=== PATIENT | male | born 1990 | race Hispanic/Latino ===

== ENCOUNTER 2019-01-12 23:43 | Inpatient (IN) | payer SELFPAY ==
[2019-01-13 00:30] LABS: Bilirubin Negative (Negative); Blood, Urine Negative (Negative); Clarity CLEAR (Clear); Glucose, Urine (Dipstick) Negative (Negative); Leukocyte Negative (Negative); Nitrite Negative (Negative); Protein, Urine (Dipstick) Negative (Neg-Trace); Specific Gravity, Urine 1.004 (1.002-1.036)
[2019-01-13 00:30] LABS: #Eosinphils 0.2 thou/uL (0.0-0.7); #Lymphocytes 1.7 thou/uL (1.20-3.40); #Monocytes 1.6 thou/uL (0.11-0.59); #Neutrophils 9.3 thou/uL (1.40-6.50); %Basophils 0.1 % (0.0-1.0); %Eosinophils 1.2 % (0.0-10.0); %Monocytes 12.7 % (0.0-10.0); %Neutrophils 72.9 % (42.0-75.0); Hemoglobin 12.9 g/dL (14.0-18.0); Mean Corpuscular HGB CONC 33.8 g/dL (32.0-36.0); Mean Corpuscular Hemoglobin 29.9 pg (27.0-31.0); Mean Corpuscular Volume 88.4 fL (78.0-98.0); Mean Platelet Volume 7.8 fL (7.4-10.4); Platelet Count 335 thou/uL (130-400); RBC Distribution Width 11.1 % (11.5-14.5); Red Blood Cell (RBC) Count 4.32 mill/uL (4.70-6.10); White Blood Cell (WBC) Count 12.8 thou/uL (4.8-10.8)
[2019-01-13 01:05] LABS: ALT (SGPT) 42 U/L (8-55); AST (SGOT) 27 U/L (5-34); Albumin 3.8 g/dL (3.5-5.0); Alkaline Phosphatase 145 U/L (40-150); Anion Gap 17 mmol/L (10-20); BUN (Urea Nitrogen) 10 mg/dL (8.9-20.6); Bilirubin, Total 0.8 mg/dL (0.2-1.2); Calc. Creatinine Clearance 0 mL/min (70-130); Calcium 9.5 mg/dL (7.8-10.44); Carbon Dioxide 23 mmol/L (22-29); Chloride 101 mmol/L (98-107); Estimated GFR-MDRD Greater than 90; Globulin 3.5 g/dL (2.4-3.5); Glucose 107 mg/dL (70-105); Lipase 9 U/L (8-78); Potassium 3.9 mmol/L (3.5-5.1); Protein, Total 7.3 g/dL (6.0-8.3); Sodium 137 mmol/L (136-145)
[2019-01-13] MEDS ORDERED: Sodium Chloride 0.9% 100 ML ONE (02:09)
[2019-01-13] MEDS ORDERED: cefTRIAXone\\ROCEPHIN 1 GM VIAL ONE (02:09)
[2019-01-13 04:32] VITALS: BMI 21.1
[2019-01-13] MEDS ORDERED: Morphine 4 MG/ML VIAL SLOW IVP PRN (05:01)
[2019-01-13] MEDS: Sodium Chloride 0.45% 1,000 ML IV SCH ×2 (05:37→18:00)
[2019-01-13] MEDS ORDERED: Ketorolac Tromethamine 30 MG/ML VIAL IVP SCH (06:00)
--- NOTE | 2019-01-13 07:41 | CT ---
PRELIMINARY REPORT/[facility]/EMERGENCY AFTER HOURS PROCEDURE: EXAM: CT Abdomen and Pelvis With Contrast EXAM DATE/TIME: 01/13/2019 1:50 AM CLINICAL HISTORY: 28 years old, male; Abdominal pain; Localized; Patient HX: 28 yo m presents to ED with right sided flank pain. PT reports right sided flank pain that radiates to his back since , with associat ed nausea and subjective fever. PT reports pain is worse with food. PT still has his gallbladder and appendix. PT denies any dysuria, denies any other medical issues. ; Additional info: *pt had contrast earlier for cta chest exam ([address]). [address] Mcpherson to give an additional reduced dose of contrast (60 ml) for CT abd/pel exam* TECHNIQUE: Imaging protocol: Axial computed tomography images of the abdomen and pelvis with intravenous contrast. Coronal reformatted images were created and reviewed. COMPARISON: No relevant prior studies available. FINDINGS: Lower chest: Refer to same day CT chest. ABDOMEN: Liver: No acute findings. No mass. Gallbladder and bile ducts: No calcified stones. No ductal dilation. Pancreas: No acute findings. No mass. No ductal dilation. Spleen: No acute findings. No mass. Adrenals: No acute findings. No mass. Kidneys and ureters: No acute findings. No mass. No hydronephrosis. Stomach and bowel: Fecal colonic loading. Mildly dilated fluid air filled nonspecific small bowel loops. Appendix: No evidence of appendicitis. PELVIS: Bladder: Distended. No mass.. Reproductive: No acute findings. ABDOMEN and PELVIS: Intraperitoneal space: No free air. No significant fluid collection. Bones/joints: No acute fracture. Soft tissues: No acute findings. Vasculature: No acute findings. No abdominal aortic aneurysm. Lymph nodes: No significant lymphadenopathy. Prominent mesenteric lymph nodes. IMPRESSION: No acute findings. Fecal colonic loading. Mildly dilated small bowel loops are nonspecific and could relate to enteritis, however recommend clinical correlation and followup if there is a concern for ea rly obstruction. Refer to same day CT chest for evaluation of the lower chest. Thank you for allowing us to participate in the care of your patient. Dictated and Authenticated by: Jimmie Frias MD 01/13/2019 2:32 AM Central Time ([place] & [place]) FINAL REPORT CT ABDOMEN AND PELVIS WITH IV AND ORAL CONTRAST PERFORMED ON AN EMERGENCY BASIS: Date: 01/13/19 Time: 0153 hours HISTORY: Right abdominal pain. FINDINGS/IMPRESSION: I agree with the preliminary report by Dr. Frias from [facility]. Fecal distention of the colon. Nonspecifi c fluid distended loops of small bowel throughout the abdomen. Small right pleural fluid and bibasilar parenchymal opacity, better demonstrated on CT arteriogram chest performed on the same date . Transcribed Date/Time: 01/13/2019 8:32 AM
--- NOTE | 2019-01-13 08:29 | RAD ---
CHEST 1 VIEW: INDICATION: Right-sided flank pain. COMPARISON: None. FINDINGS: There is a right-sided pleural effusion with vascular patchy opacities in the right lung base possibl y related to subsegmental volume loss. The left lung is clear. Heart size is mildly prominent. The pulmonary vasculature appears mildly prominent. No acute osseous abnormality is evident. IMPRESSION: 1. Nonspecific pleural parenchymal opacity in the right lung base suspicious for a right pleural eff usion with right basilar atelectasis or pneumonia. 2. Mild cardiomegaly with mild pulmonary vascular congestion. POS: BH
--- NOTE | 2019-01-13 08:37 | CT ---
PRELIMINARY REPORT/[facility]/EMERGENCY AFTER HOURS PROCEDURE: EXAM: CT Angiography Chest With Contrast EXAM DATE/TIME: 01/13/2019 12:38 AM CLINICAL HISTORY: 28 years old, male; Signs and symptoms; Shortness of breath; Patient HX: Er 5. PT C/O chest pain (rig ht sided) with radiation of pain to his back. PT also C/O slight SOB. TECHNIQUE: Imaging protocol: Axial computed tomographic angiography images of the chest with intravenous contras t using CT angiography protocol. 3D rendering: MIP reconstructed images were created and reviewed. COMPARISON: No relevant prior studies available. FINDINGS: Pulmonary arteries: No evidence of pulmonary embolism. Aorta: No acute findings. No aortic aneurysm or dissection. Lungs: Multiloculated right pleural effusion and adjacent atelectasis. Few bilateral peripheral scatt ered small nonspecific nodules. Right lower and middle lobe septal and peribronchial thickening. Pleural space: See above. No pneumothorax. Heart: Mild cardiomegaly. No pericardial effusion. Lymph nodes: Mild right hilar and subcarinal adenopathy. Bones/joints: No acute fracture. Soft tissues: No acute findings. IMPRESSION: No evidence of pulmonary embolism. Multiloculated right pleural effusion and adjacent atelectasis. Mild right hilar and subcarinal adenopathy. Few bilateral small nonspecific pulmonary nodules. Mild cardiomegaly. Thank you for allowing us to participate in the care of your patient. Dictated and Authenticated by: Jimmie Frias MD 01/13/2019 1:13 AM Central Time ([place] & [place]) FINAL REPORT EMERGENCY AFTER HOURS CT ANGIGORAM CHEST WITH 3D RENDERING: Date: 01/13/19 Time: 0040 hours FINDINGS/IMPRESSION: No convincing CT evidence for acute pulmonary embolism. Multiloculated right pleural effusion with so me adjacent subsegmental atelectasis. Minimal right hilar and subcarinal adenopathy. There are several bilateral less than 0.4 cm diameter nodules. Consider 1 year follow-up CT. CODE LN. Report in agreement with preliminary report given on-call by Teodoro. POS: [facility]
[2019-01-13] MEDS: Azithromycin 500 MG in Sodium Chloride 0.9% 250 ML 250 ML IVPB SCH (10:13)
[2019-01-13] MEDS ORDERED: ISOVUE-370 76%-LOCM 1 ML ONE ×2 (10:53→10:54)
--- NOTE | 2019-01-13 12:37 | HP ---
CHIEF COMPLAINT: Shortness of breath, orthopnea, and chest pain. HISTORY OF PRESENT ILLNESS: The patient is a 28-year-old male with no significant past medical history, who presented to the hospital with complaints of right-sided back pain radiating to the chest along with worsening shortness of breath that began approximately 4 days ago. The patient reports that he had had a cough for about a week prior to onset of his presenting symptoms. He was seen in urgent care clinic and was given some type of injection along with prescription-strength naproxen, but his symptoms continued to worsen and so he presented to the hospital for further workup and treatment. The patient states that his pain is exacerbated with deep breathing. He states that he does seem to feel some increased shortness of breath when the pain comes on. His shortness of breath is also exacerbated with lying down flat. The patient reports some subjective fever along with intermittent diaphoresis that also comes along with his back and chest pain. The patient reports no abdominal symptoms to me. He denies any nausea, vomiting, or diarrhea. On arrival to the hospital, his lab work was significant for mild leukocytosis with a white count of 13,000. He also had elevated D-dimer of 1.48 along with elevated CRP of 27.88. He was taken for CTA of the chest and thorax, which revealed no evidence of pulmonary embolism, however, did show a multiloculated right pleural effusion with adjacent subsegmental atelectasis and minimal right hilar and subcarinal adenopathy. The patient has been admitted to the hospitalist service for further workup and treatment. REVIEW OF SYSTEMS: Other than as stated above, 12-point review of systems is performed and is negative. As mentioned, the patient denies any recent abdominal symptoms. He has had no unintentional weight loss. He denies recent travel; he has not been to [place] in over 18 months. ALLERGIES: NO KNOWN DRUG ALLERGIES. HOME MEDICATIONS: The patient takes no home medications on a routine basis, but was recently prescribed naproxen for his back and chest pain. PAST MEDICAL HISTORY: None. PAST SURGICAL HISTORY: None. FAMILY HISTORY: The patient states that his mother and father are well, and he does not know of any health problems. He has several siblings who are alive and well also. SOCIAL HISTORY: The patient denies any alcohol, illicit drug use, or smoking history. He works in [employer]. He is and has 3 young boys. PHYSICAL EXAMINATION: VITAL SIGNS: Blood pressure 117/56, O2 saturations 99% on room air, pulse is 72 , temperature is 97.4. GENERAL: The patient is a thin male, resting in bed, in no acute distress. HEENT: Head is atraumatic and normocephalic. Mucous membranes are moist. NECK: No lymphadenopathy. No carotid bruits. No JVD. The patient also has no evidence of periauricular or supraclavicular adenopathy. CV: S1 and S2. Regular rate and rhythm. No appreciable murmurs, rubs, or gallops. LUNGS: Regular respiratory rate and pattern, diminished on the right to the mid lung field, with some crackles evident. There are no rhonchi or wheezes noted. ABDOMEN: Soft. Positive bowel sounds. Nontender to palpation. EXTREMITIES: No edema. SKIN: Warm and dry. No obvious rashes or discolorations. NEUROLOGIC: Cranial nerves 2 through 12 grossly intact. The patient is nonfocal. LABORATORY DATA: White blood cell count 12.8, RBC 4.32, hemoglobin 12.9, hematocrit 38.2, platelet count 335. D-dimer 1.48. Sodium 137, potassium 3.9, chloride 101, carbon dioxide 23, anion gap 17, BUN 10 , creatinine 0.85. Lactic acid is 0.8. AST, ALT, alkaline phosphatase all within normal limits. CRP 27.88. Urinalysis was negative. IMAGING STUDIES: CTA negative for pulmonary embolism. CTA as outlined in the HPI. The patient had an abdomen and pelvis CT as well, which showed some fecal colonic loading and mildly dilated small bowel loops, which were nonspecific findings that are related to enteritis with clinical correlation recommended. ASSESSMENT: 1. Shortness of breath and orthopnea along with pleuritic chest wall pain secondary to loculated right pleural effusion. 2. Loculated right pleural effusion and mild hilar adenopathy, unknown etiology, possibly infectious given mild leukocytosis. CAP, ? empyema 3. Constipation per CT scan. 4. Microcytic anemia, mild. PLAN: Given the patient's CT findings and presenting symptoms, we will continue empiric antibiotic coverage and NSAIDs for pain relief. We will consult Pulmonology for further recommendations and possible diagnostic thoracentesis if deemed appropriate. Further recommendations based on hospital findings. Job ID: [id number] [facility]
[2019-01-13] MEDS: Morphine 2 MG/ML SYRINGE SLOW IVP PRN (17:58)
[2019-01-13] MEDS: Ketorolac Tromethamine 30 MG/ML VIAL IVP PRN (20:41)
[2019-01-13] MEDS ORDERED: Bisacodyl 5 MG TAB PO PRN (21:27)
[2019-01-13] MEDS ORDERED: Ondansetron PF 4 MG/2 ML Vial IVP PRN (21:27)
--- NOTE | 2019-01-13 23:53 | CON ---
DATE OF CONSULTATION: 01/13/2019 SERVICE: Pulmonary Medicine. REASON FOR CONSULTATION: Pleural effusion. HISTORY OF PRESENT ILLNESS: The patient is a very pleasant 28-year-old male with past medical history significant for nothing. For 9 days, he has had increasing cough, pleuritic chest discomfort, which resulted ultimately in fevers. He presented to the emergency department and was discovered to have a loculated effusion, which was extremely small in the recess of the right lung base. He denies any current fevers or chills. He is having some nausea and has an aversion for food. This was an acute presentation. He does not have a long-standing history of cough. His weight has been stable and he denies any night sweats or hemoptysis. PAST MEDICAL HISTORY: None. PAST SURGICAL HISTORY: None. SOCIAL HISTORY: Negative for alcohol, tobacco, or illicit drug use. He is [place]-speaking only. He works in [employer]. FAMILY HISTORY: Noncontributory. ALLERGIES: NO KNOWN DRUG ALLERGIES. MEDICATIONS: List of his inpatient medications was reviewed. I have changed the Rocephin over to Zosyn to give us more robust anaerobic coverage. REVIEW OF SYSTEMS: General, head, ears, eyes, nose, throat, cardiovascular, respiratory, GI, , musculoskeletal, neurologic, and skin is negative except as mentioned in the HPI. PHYSICAL EXAMINATION: VITAL SIGNS: Afebrile currently. He has a T-max 99.1, pulse 92, blood pressure 108/62, respirations 14 and saturation 94% on room air. GENERAL: The patient is awake and alert, in no apparent distress. LUNGS: Decreased air entry at the right base. There is no prolonged expiratory phase or wheezing present. HEART: Normal rate and regular. ABDOMEN: Soft, nontender, nondistended. Bowel sounds are positive. MUSCULOSKELETAL: No cyanosis or clubbing. No pitting in the bilateral lower extremities. NEUROLOGIC: Grossly nonfocal. LABORATORY DATA: WBC 12.8, hemoglobin 12.9, platelets 335,000. ESR is normal, though the CRP is significantly elevated. D-dimer 1.48. Basic metabolic profile, liver function studies and lactate are unremarkable. Urinalysis is negative. IMAGING DATA: 1. CT of the abdomen and pelvis demonstrates no acute intraabdominal process. 2. CT of the chest demonstrates very small right-sided loculated effusions and possible infiltrate adjacent to it. There is no PE. ASSESSMENT: 1. Sepsis without end-organ damage. 2. Empyema, suspected. DISCUSSION AND PLAN: We will continue our empiric antibiotics, though I am going to discontinue the Rocephin and add Zosyn to get more robust anaerobic coverage. At this point, these effusions are likely infectious. That being said, they are simply too small to tap. If they get smaller through time, we will simply observe. If on the other hand, the fluid collections increase in size, we will move forward with a thoracentesis. Ultimately, the patient will likely require decortication. We will provide him some pain medication. Pulmonary/Critical Care will continue to follow along. 70 minutes have been devoted to this patient in various activities. I personally reviewed all imaging studies and laboratory data noted within this document. For fifty percent of this time, I was interacting with the patient at the bedside or coordinating care with the care team. For the remainder of the time I was immediately available to the patient in the hospital unit. Job ID: [id number] [facility]
[2019-01-14] MEDS ORDERED: cefTRIAXone\\ROCEPHIN 1 GM in Sodium Chloride 0.9% 100 ML IVPB SCH (02:00)
[2019-01-14] MEDS: Acetaminophen 325 MG TAB PO PRN ×2 (04:14→17:07)
[2019-01-14] MEDS: Morphine 2 MG/ML SYRINGE SLOW IVP PRN (04:28)
[2019-01-14 05:08] LABS: #Eosinphils 0.1 thou/uL (0.0-0.7); #Monocytes 1.7 thou/uL (0.11-0.59); #Neutrophils 11.9 thou/uL (1.40-6.50); %Basophils 0.1 % (0.0-1.0); %Eosinophils 0.6 % (0.0-10.0); %Lymphocytes 12.7 % (21.0-51.0); %Monocytes 10.9 % (0.0-10.0); %Neutrophils 75.8 % (42.0-75.0); Hemoglobin 13.5 g/dL (14.0-18.0); Mean Corpuscular HGB CONC 33.4 g/dL (32.0-36.0); Mean Corpuscular Hemoglobin 29.5 pg (27.0-31.0); Mean Corpuscular Volume 88.3 fL (78.0-98.0); Platelet Count 398 thou/uL (130-400); RBC Distribution Width 11.2 % (11.5-14.5); Red Blood Cell (RBC) Count 4.57 mill/uL (4.70-6.10); White Blood Cell (WBC) Count 15.7 thou/uL (4.8-10.8)
[2019-01-14 05:31] LABS: Anion Gap 13 mmol/L (10-20); BUN (Urea Nitrogen) 7 mg/dL (8.9-20.6); Calc. Creatinine Clearance 112 mL/min (70-130); Calcium 9.5 mg/dL (7.8-10.44); Carbon Dioxide 26 mmol/L (22-29); Chloride 102 mmol/L (98-107); Estimated GFR-MDRD Greater than 90; Glucose 105 mg/dL (70-105); Potassium 4.1 mmol/L (3.5-5.1); Sodium 137 mmol/L (136-145)
[2019-01-14] MEDS ORDERED: Cepastat Lozenges 1 LOZ PO PRN (07:06)
[2019-01-14] MEDS ORDERED: Artificial Tears 18 DROP/0.9 ML EA EYE PRN (07:06)
[2019-01-14] MEDS ORDERED: Diabetic Tussin 200 MG/10 ML UDCUP PO PRN (07:06)
[2019-01-14] MEDS ORDERED: Loperamide HCl 2 MG CAP PO PRN (07:06)
[2019-01-14] MEDS ORDERED: hydrALAZINE 20 MG/ML VIAL SLOW IVP PRN (07:06)
[2019-01-14] MEDS ORDERED: Senokot S 8.6-50 MG TAB PO PRN (07:06)
[2019-01-14] MEDS ORDERED: Zolpidem Tartrate 5 MG TAB PO PRN (07:06)
[2019-01-14] MEDS ORDERED: Ondansetron ODT 4 MG TAB SL PRN (07:06)
[2019-01-14] MEDS ORDERED: Eucerin (Mineral Oil/Petrolatum,White) 30 gm Jar TOP PRN (07:06)
[2019-01-14] MEDS ORDERED: Loratadine 10 MG TAB PO PRN (07:06)
[2019-01-14] MEDS ORDERED: Sodium Chloride 0.65% Nasal 44 ML BOT EA NARE PRN (07:06)
--- NOTE | 2019-01-14 08:28 | RAD ---
XR Chest Pa Lat STANDARD HISTORY: Pleural effusion COMPARISON: Previous day FINDINGS: The heart size is normal. The left lung is clear. There is a right-sided pleural effusion w ith opacity in the right lower lung which is worsened since the last exam.
[2019-01-14] MEDS: Piperacillin/Tazobactam 4.5 GM in Sodium Chloride 0.9% 100 ML IVPB SCH ×3 (09:06→19:45)
[2019-01-14] MEDS: Saccharomyces boulardii 250 MG CAP PO SCH (09:06)
[2019-01-14] MEDS: HYDROcodone/Acetaminophen 5/325 mg Tablet PO PRN (09:09)
--- NOTE | 2019-01-14 09:37 | PDOC.EVN ---
Event Note - Event Note Event Note: Reviewed the case with VALERIE Davison. Via food services director, interviewed and examined the patient. Still reporting significant pain in the right chest area. Has some mild cough and F/C immediately prior to the onset of the pain. From [facility]. Has been in the [place] consistently for the past 1.5 years. Imaging shows a pleural effusion without infiltrate. Diminished in R base more than expected based on imaging. Remainder of exam is normal. Concern for empyema. Discussed with Dr. Andres. Will make inpatient, continue IV abx and consult Pulmonary.
--- NOTE | 2019-01-14 10:03 | PRG ---
DATE OF SERVICE: 01/14/2019 SERVICE: Pulmonary Medicine. INTERVAL HISTORY: The patient is doing okay from respiratory standpoint. His pleuritic chest discomfort is improving ever so slightly. Denies any current chest pain, fevers, chills, nausea, or vomiting. There were no significant overnight events except for some intermittent low-grade fevers. PHYSICAL EXAMINATION: VITAL SIGNS: Currently afebrile. He has a temperature max of 102.9, pulse 81, blood pressure 98/58, respirations 16, and saturation 95% on room air. GENERAL: The patient is awake and alert. No apparent distress. LUNGS: Decent air entry on the left. There is decreased air entry in the right base. No prolonged expiratory phase or wheezing is appreciated. There are some minimal rhonchi. HEART: Normal rate and regular. ABDOMEN: Soft, nontender, and nondistended. Bowel sounds are positive. MUSCULOSKELETAL: No cyanosis or clubbing. No pitting in the bilateral lower extremities. NEUROLOGIC: Grossly nonfocal. LABORATORY DATA: WBC 15.7, hemoglobin 13.5, platelets 398,000. Basic metabolic profile is essentially unremarkable. Urinalysis is negative. Blood cultures x2 are negative to date. IMAGING STUDIES: Echocardiogram shows no acute cardiopulmonary abnormality. Chest x-ray demonstrates increasing right-sided pleural effusion/infiltrate. ASSESSMENT: 1. Community-acquired pneumonia. 2. Loculated pleural effusion, empyema suspected. 3. Sepsis without end-organ damage. DISCUSSION AND PLAN: I will move forward with a diagnostic thoracentesis. If this is abnormal, Cardiothoracic surgery will be consulted to clean up the space. Pulmonary/Critical Care will continue to follow along in this location. Job ID: [id number]
[2019-01-14] MEDS: Azithromycin 500 MG in Sodium Chloride 0.9% 250 ML 250 ML IVPB SCH (11:40)
--- NOTE | 2019-01-14 12:22 | PDOC.PN ---
- Subjective Encounter Start Date: 01/14/19 Encounter Start Time: 09:00 -: old records requested/rev pt has cough, right side pleuritic chest pain, has dyspnea, no fever Patient seen and examined. No overnight events - Objective Resuscitation Status - Order Detail: 01/14/19 07:06 Resuscitation Status Routine Resuscitation Status: FULL: Full Resuscitation MAR Reviewed: Yes Vital Signs & Weight: Vital Signs (12 hours) Temp Pulse Resp BP BP Pulse Ox 01/14/19 11:10 98.1 F 82 17 112/69 96 01/14/19 09:05 95 01/14/19 07:04 97.8 F 81 16 98/58 L 95 01/14/19 06:30 98.3 F 01/14/19 04:00 101.3 F H 97 16 112/63 91 L Weight Weight 129 lb 11.2 oz I&O: 01/13/19 01/14/19 01/15/19 06:59 06:59 06:59 Intake Total 1600 Balance 1600 Result Diagrams: 01/14/19 04:28 01/14/19 04:28 Radiology Reviewed by me: Yes (chest xray reviewed) Phys Exam - Physical Examination Constitutional: NAD HEENT: PERRLA, moist MMs, sclera anicteric Neck: no JVD, supple Respiratory: no wheezing, no rhonchi reduced air entry right side Cardiovascular: RRR, no significant murmur, no rub Gastrointestinal: soft, non-tender, no distention, positive bowel sounds Musculoskeletal: no edema, pulses present Neurological: non-focal, normal sensation, moves all 4 limbs Lymphatic: no nodes Psychiatric: normal affect, A&O x 3 Skin: no rash, normal turgor Dx/Plan (1) Parapneumonic effusion Code(s): J18.9 - PNEUMONIA, UNSPECIFIED ORGANISM; J91.8 - PLEURAL EFFUSION IN OTHER CONDITIONS CLASSIFIED ELSEWHERE Status: Acute Comment: right sided, loculated pleural effusion, empyema suspected, associated with underlying pneumonia (2) Sepsis Code(s): A41.9 - SEPSIS, UNSPECIFIED ORGANISM Status: Acute - Plan cont current plan of care, continue antibiotics, respiratory therapy * spoke with pulmonary, today plan for thoracentesis, he will need thorecoscopic surgery * continue zosyn and azithromycin * medication reviewed as below * symptomatic treatment. Review of Systems - Review of Systems ENT: negative: Ear Pain, Ear Discharge, Nose Pain, Nose Discharge, Nose Congestion, Mouth Pain, Mouth Swelling, Throat Pain, Throat Swelling, Other Respiratory: Cough, Shortness of Breath, Pleuritic Pain. negative: Dry, Hemoptysis, SOB with Excertion, Sputum, Wheezing Cardiovascular: negative: chest pain, palpitations, orthopnea, paroxysmal nocturnal dyspnea, edema, light headedness, other Gastrointestinal: negative: Nausea, Vomiting, Abdominal Pain, Diarrhea, Constipation, Melena, Hematochezia, Other Genitourinary: negative: Dysuria, Frequency, Incontinence, Hematuria, Retention , Other Musculoskeletal: negative: Neck Pain, Shoulder Pain, Arm Pain, Back Pain, Hand Pain, Leg Pain, Foot Pain, Other - Medications/Allergies Allergies/Adverse Reactions: Allergies Allergy/AdvReac Type Severity Reaction Status Date / Time No Known Allergies Allergy Verified 01/13/19 04:50 Medications: Current Medications Acetaminophen (Tylenol) 650 mg PO Q6H PRN PRN Reason: Headache/Fever/MILD Pain1-3 Last Admin: 01/14/19 04:14 Dose: 650 mg Hydrocodone Bitart/Acetaminophen ([place] 5/325) 1 tab PO Q4H PRN PRN Reason: Moderate Pain (4-6) Last Admin: 01/14/19 09:09 Dose: 1 tab Artificial Tears (Tears Naturale) 2 drop EA EYE PRN PRN PRN Reason: Dry Eyes Bisacodyl (Dulcolax) 10 mg PO DAILYPRN PRN PRN Reason: Constipation Guaifenesin (Robitussin Sf) 200 mg PO Q4H PRN PRN Reason: Cough Hydralazine HCl (Apresoline) 10 mg SLOW IVP Q4H PRN PRN Reason: SBP > 180 and HR < 70 Azithromycin 500 mg/ Sodium (Chloride) 250 mls @ 250 mls/hr IVPB Q24HR MAIN Last Admin: 01/14/19 11:40 Dose: 250 mls Piperacillin Sod/Tazobactam (Sod 4.5 gm/ Sodium Chloride) 100 mls @ 200 mls/hr IVPB 0200,0800,1400,2000 MAIN Last Admin: 01/14/19 09:06 Dose: 100 mls Ketorolac Tromethamine (Toradol) 15 mg IVP Q8HR PRN PRN Reason: Mild Pain (1-3) Stop: 01/18/19 22:01 Last Admin: 01/13/19 20:41 Dose: 15 mg Loperamide HCl (Imodium) 2 mg PO PRN PRN PRN Reason: Diarrhea/Loose Stools Loratadine (Claritin) 10 mg PO DAILYPRN PRN PRN Reason: Sinus Symptoms Mineral Oil/White Petrolatum (Eucerin Cream) 0 gm TOP BIDPRN PRN PRN Reason: Dry Skin Morphine Sulfate (Morphine) 2 mg SLOW IVP Q4H PRN PRN Reason: Severe Pain (7-10) Last Admin: 01/14/19 04:28 Dose: 2 mg Ondansetron HCl (Zofran) 4 mg IVP Q6H PRN PRN Reason: Nausea/Vomiting Ondansetron HCl (Zofran Odt) 4 mg SL Q6H PRN PRN Reason: Nausea/Vomiting Saccharomyces Boulardii (Florastor) 250 mg PO DAILY MAIN Last Admin: 01/14/19 09:06 Dose: 250 mg Senna/Docusate Sodium (Senokot S) 2 tab PO BID PRN PRN Reason: Constipation Sodium Chloride (Flush - Normal Saline) 10 ml IVF PRN PRN PRN Reason: Saline Flush Last Admin: 01/14/19 09:07 Dose: 10 ml Sodium Chloride ([place] Nasal [place] 0.65%) 0 ml EA NARE QIDPRN PRN PRN Reason: Nasal Congestion Throat Lozenges (Cepastat Lozenges) 1 glen PO Q2H PRN PRN Reason: Sore Throat Zolpidem Tartrate (Ambien) 5 mg PO HSPRN PRN PRN Reason: Insomnia
[2019-01-14] MEDS ORDERED: Lidocaine 1% (PF) 30 ML VIAL ONE (15:57)
[2019-01-14 16:57] LABS: BF Color Yellow; Body Fluid Source Pleural Fluid; Clarity Clear (Clear); Tube # EDTA
[2019-01-14 17:17] LABS: BF RBC Count - Manual 101 /cumm; BF WBC/Nonhematics Ct. - Manua 34 /cumm
[2019-01-14 18:03] LABS: BF Segmented Neutrophils 97 %; Cell Count Non Hematic 2 %; Lymphocytes 1 %
[2019-01-15] MEDS: Ketorolac Tromethamine 30 MG/ML VIAL IVP PRN (00:22)
[2019-01-15] MEDS: Piperacillin/Tazobactam 4.5 GM in Sodium Chloride 0.9% 100 ML IVPB SCH ×4 (02:23→19:26)
[2019-01-15] MEDS: Saccharomyces boulardii 250 MG CAP PO SCH (07:39)
--- NOTE | 2019-01-15 09:50 | PRG ---
DATE OF SERVICE: 01/15/2019 SERVICE: Pulmonary Medicine. INTERVAL HISTORY: The patient is doing fine from respiratory standpoint. He is breathing comfortably. He continues to have pleuritic chest discomfort. Denies any current fevers, chills, cough, nausea, or vomiting. I reviewed the results of thoracentesis from yesterday. I discussed the findings with him, and suggested that he should be visited by a cardiothoracic surgeon at some point today. PHYSICAL EXAMINATION: VITAL SIGNS: Afebrile currently. He has a T-max overnight of 101.2. Pulse 87, blood pressure 103/60, respirations 16, and saturation 92% on room air. GENERAL: The patient is awake and alert, in no apparent distress. LUNGS: Good air entry on the left. There is decreased air entry at the right base. No prolonged expiratory phase or wheezing is appreciated. HEART: Normal rate and regular. ABDOMEN: Soft, nontender, and nondistended. Bowel sounds are positive. MUSCULOSKELETAL: No cyanosis or clubbing. No pitting in the bilateral lower extremities. NEUROLOGIC: Grossly nonfocal. LABORATORY DATA: Pleural fluid LDH is 2200. Total protein is elevated, glucose is low at 29, and fluid pH is 7.3. There is a neutrophil predominant cell type. Blood cultures x2 and body fluid culture negative to date. ASSESSMENT: 1. Community-acquired pneumonia. 2. Complicated parapneumonic effusion versus empyema. 3. Sepsis without end-organ damage. DISCUSSION AND PLAN: My suspicion is that this is an empyema. Either way, decortication would be treatment of choice given the characteristics of the fluid. Cardiothoracic Surgery will be invited to care for this patient. We will continue our empiric antibiotics. Job ID: [id number]
[2019-01-15] MEDS ORDERED: Fentanyl 100 MCG/2 ML VIAL ONE (11:17)
[2019-01-15] MEDS ORDERED: Midazolam HCl 2 mg/2 ml Vial ONE (11:17)
[2019-01-15] MEDS ORDERED: Bupivacaine/Epinephrine 0.25% 30 ML VIAL ONE (11:18)
[2019-01-15] MEDS ORDERED: Bupivacaine HCl 0.5%/Epinephrine 1:200,000/PF 30 ml Vial ONE (11:18)
--- NOTE | 2019-01-15 11:37 | PDOC.PN ---
- Subjective Encounter Start Date: 01/15/19 Encounter Start Time: 09:45 this morning he had fever, has less cough, feels overall OK - Objective Resuscitation Status - Order Detail: 01/14/19 07:06 Resuscitation Status Routine Resuscitation Status: FULL: Full Resuscitation MAR Reviewed: Yes Vital Signs & Weight: Vital Signs (12 hours) Temp Pulse Resp BP Pulse Ox 01/15/19 10:56 98.7 F 87 20 123/69 92 L 01/15/19 08:00 93 L 01/15/19 07:20 99.3 F 87 16 103/60 92 L 01/15/19 04:00 98.7 F 75 20 100/61 92 L 01/15/19 01:50 99.2 F 01/15/19 01:17 101.2 F H 91 20 111/66 92 L Weight Admit Weight 129 lb 11.2 oz Weight 129 lb 11.2 oz I&O: 01/14/19 01/15/19 01/16/19 06:59 06:59 06:59 Intake Total 1600 1170 Balance 1600 1170 Result Diagrams: 01/14/19 04:28 01/14/19 04:28 Phys Exam - Physical Examination Constitutional: NAD HEENT: PERRLA, moist MMs, sclera anicteric Neck: no JVD, supple Respiratory: no wheezing, no rhonchi reduced air entry right side Cardiovascular: RRR, no significant murmur, no rub Gastrointestinal: soft, non-tender, no distention, positive bowel sounds Musculoskeletal: no edema, pulses present Neurological: non-focal, normal sensation, moves all 4 limbs Lymphatic: no nodes Psychiatric: normal affect, A&O x 3 Skin: no rash, normal turgor Dx/Plan (1) Pneumonia Code(s): J18.9 - PNEUMONIA, UNSPECIFIED ORGANISM Status: Acute (2) Parapneumonic effusion Code(s): J18.9 - PNEUMONIA, UNSPECIFIED ORGANISM; J91.8 - PLEURAL EFFUSION IN OTHER CONDITIONS CLASSIFIED ELSEWHERE Status: Acute Comment: right sided, loculated pleural effusion, empyema suspected, associated with underlying pneumonia (3) Sepsis Code(s): A41.9 - SEPSIS, UNSPECIFIED ORGANISM Status: Acute - Plan cont current plan of care, continue antibiotics * continue zosyn and azithromycin * today CV surgery consulted * medication reviewed as below * symptomatic treatment. Review of Systems - Review of Systems ENT: negative: Ear Pain, Ear Discharge, Nose Pain, Nose Discharge, Nose Congestion, Mouth Pain, Mouth Swelling, Throat Pain, Throat Swelling, Other Respiratory: Cough. negative: Dry, Shortness of Breath, Hemoptysis, SOB with Excertion, Pleuritic Pain, Sputum, Wheezing Cardiovascular: negative: chest pain, palpitations, orthopnea, paroxysmal nocturnal dyspnea, edema, light headedness, other Gastrointestinal: negative: Nausea, Vomiting, Abdominal Pain, Diarrhea, Constipation, Melena, Hematochezia, Other Genitourinary: negative: Dysuria, Frequency, Incontinence, Hematuria, Retention , Other Musculoskeletal: negative: Neck Pain, Shoulder Pain, Arm Pain, Back Pain, Hand Pain, Leg Pain, Foot Pain, Other - Medications/Allergies Allergies/Adverse Reactions: Allergies Allergy/AdvReac Type Severity Reaction Status Date / Time No Known Allergies Allergy Verified 01/13/19 04:50 Medications: Current Medications Acetaminophen (Tylenol) 650 mg PO Q6H PRN PRN Reason: Headache/Fever/MILD Pain1-3 Last Admin: 01/14/19 17:07 Dose: 650 mg Hydrocodone Bitart/Acetaminophen ([place] 5/325) 1 tab PO Q4H PRN PRN Reason: Moderate Pain (4-6) Last Admin: 01/14/19 09:09 Dose: 1 tab Artificial Tears (Tears Naturale) 2 drop EA EYE PRN PRN PRN Reason: Dry Eyes Bisacodyl (Dulcolax) 10 mg PO DAILYPRN PRN PRN Reason: Constipation Guaifenesin (Robitussin Sf) 200 mg PO Q4H PRN PRN Reason: Cough Hydralazine HCl (Apresoline) 10 mg SLOW IVP Q4H PRN PRN Reason: SBP > 180 and HR < 70 Azithromycin 500 mg/ Sodium (Chloride) 250 mls @ 250 mls/hr IVPB Q24HR MAIN Last Admin: 01/14/19 11:40 Dose: 250 mls Piperacillin Sod/Tazobactam (Sod 4.5 gm/ Sodium Chloride) 100 mls @ 200 mls/hr IVPB 0200,0800,1400,2000 MAIN Last Admin: 01/15/19 07:38 Dose: 100 mls Ketorolac Tromethamine (Toradol) 15 mg IVP Q8HR PRN PRN Reason: Mild Pain (1-3) Stop: 01/18/19 22:01 Last Admin: 01/15/19 00:22 Dose: 15 mg Loperamide HCl (Imodium) 2 mg PO PRN PRN PRN Reason: Diarrhea/Loose Stools Loratadine (Claritin) 10 mg PO DAILYPRN PRN PRN Reason: Sinus Symptoms Mineral Oil/White Petrolatum (Eucerin Cream) 0 gm TOP BIDPRN PRN PRN Reason: Dry Skin Morphine Sulfate (Morphine) 2 mg SLOW IVP Q4H PRN PRN Reason: Severe Pain (7-10) Last Admin: 01/14/19 04:28 Dose: 2 mg Ondansetron HCl (Zofran) 4 mg IVP Q6H PRN PRN Reason: Nausea/Vomiting Ondansetron HCl (Zofran Odt) 4 mg SL Q6H PRN PRN Reason: Nausea/Vomiting Saccharomyces Boulardii (Florastor) 250 mg PO DAILY MAIN Last Admin: 01/15/19 07:39 Dose: 250 mg Senna/Docusate Sodium (Senokot S) 2 tab PO BID PRN PRN Reason: Constipation Sodium Chloride (Flush - Normal Saline) 10 ml IVF PRN PRN PRN Reason: Saline Flush Last Admin: 01/14/19 09:07 Dose: 10 ml Sodium Chloride ([place] Nasal [place] 0.65%) 0 ml EA NARE QIDPRN PRN PRN Reason: Nasal Congestion Throat Lozenges (Cepastat Lozenges) 1 glen PO Q2H PRN PRN Reason: Sore Throat Zolpidem Tartrate (Ambien) 5 mg PO HSPRN PRN PRN Reason: Insomnia
[2019-01-15] MEDS: Azithromycin 500 MG in Sodium Chloride 0.9% 250 ML 250 ML IVPB SCH (11:59)
[2019-01-15] MEDS ORDERED: Ondansetron HCl/PF 4 MG/2 ML Vial IVP PRN (13:24)
--- NOTE | 2019-01-15 14:52 | RAD ---
CHEST 1 VIEW: HISTORY: Chest tube. COMPARISON: 01/14/2019. FINDINGS: A right chest tube has been placed with improvement in the overall pleural and parenchymal opacity ch anges in the mid and lower chest. Stable left chest. IMPRESSION: Improvement in the previously noted right lower chest pleural and parenchymal opacity changes after p lacement of a right chest tube. No convincing evidence for a pneumothorax. POS: OFF
--- NOTE | 2019-01-15 15:17 | OP ---
DATE OF PROCEDURE: 01/14/2019 SERVICE: Pulmonary Medicine. PROCEDURE: Right-sided thoracentesis under ultrasound guidance. CONSENT: The risks and benefits were discussed with the patient. All questions were answered and alternative options explained. MEDICATIONS USED: Lidocaine 1% without epinephrine, total quantity 15 mL. PREOPERATIVE DIAGNOSES: 1. Community-acquired pneumonia. 2. Loculated pleural effusion. POSTPROCEDURE DIAGNOSES: 1. Community-acquired pneumonia. 2. Loculated pleural effusion. DESCRIPTION OF PROCEDURE: Time-out was performed by the procedure team and the patient. The patient was positively identified using name and date of . The procedure site was marked. Vital sign monitoring was accomplished by noninvasive hemodynamic monitoring and pulse oximetry. In the seated position, the right posterior hemithorax was examined using ultrasound probe. The diaphragm and pleural fluid were identified. Multiple pockets of fluid were identified. The skin was prepped and draped in sterile fashion and anesthetized with 1% lidocaine without epinephrine. A finder needle was inserted in the pleural space with return of cloudy cammy fluid. A pleural drainage catheter was inserted in the same location and a total quantity of about 10 mL of the same cloudy pleural fluid were withdrawn. This was sent for analysis. The fluid stopped coming at that moment. As such, the catheter was repositioned. After this, a clear yellow fluid was evacuated, but this terminated after roughly 20 mL of pleural fluid. The intact catheter was withdrawn on exhalation, and a sterile dressing was applied. The patient had stable vitals throughout the entire procedure. ESTIMATED BLOOD LOSS: Less than 2 mL. COMPLICATIONS: None. Job ID: [id number]
[2019-01-15] MEDS: Morphine 2 MG/ML SYRINGE SLOW IVP PRN ×2 (15:19→19:26)
[2019-01-15] MEDS ORDERED: Dexamethasone 20 MG/5 ML VIAL ONE (15:24)
[2019-01-15] MEDS ORDERED: Lidocaine 1% PF 5 ML VIAL ONE (15:24)
[2019-01-15] MEDS ORDERED: PROPOFOL 200 MG/20 ML VIAL ONE (15:24)
[2019-01-15] MEDS ORDERED: Ondansetron PF 4 MG/2 ML Vial ONE (15:24)
[2019-01-15] MEDS ORDERED: Rocuronium Bromide 10 MG/ML (10ML VIAL) ONE (15:24)
[2019-01-15] MEDS ORDERED: Ketorolac Tromethamine 30 MG/ML VIAL ONE (15:24)
--- NOTE | 2019-01-15 17:02 | CON ---
DATE OF CONSULTATION: HISTORY OF PRESENT ILLNESS: This is a 28-year-old with cough, right-sided pleuritic chest pain, progressive over the last week with recent fevers. He was admitted to the hospital, where he was found to have a loculated effusion by CT scan. Thoracentesis was done yesterday in 2 different pockets. Today, his chest x-ray shows increasing effusion. White count is elevated at 15,000, and he is being referred for decortication, hopefully thoracoscopic. PAST MEDICAL HISTORY: Negative. PAST SURGICAL HISTORY: Negative. SOCIAL HISTORY: He is in the [employer]. PHYSICAL EXAMINATION: GENERAL: On examination, he is alert, cooperative gentleman, in no distress, sitting comfortably. NECK: No carotid bruits. LUNGS: Decreased breath sounds in the right base. No wheezing. ABDOMEN: Scaphoid, nontender. EXTREMITIES: No edema. 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 Job ID: [id number]
[2019-01-16] MEDS: Piperacillin/Tazobactam 4.5 GM in Sodium Chloride 0.9% 100 ML IVPB SCH ×2 (03:31→06:59)
[2019-01-16] MEDS: Morphine 2 MG/ML SYRINGE SLOW IVP PRN ×2 (06:58→18:08)
--- NOTE | 2019-01-16 07:23 | RAD ---
Exam: Chest one view: HISTORY: Chest tube follow-up COMPARISON: 01/15/2019 FINDINGS: Right chest tube with some persistent pleural and parenchymal opacity changes in the right lobe. No p neumothorax. Stable left chest.
[2019-01-16] MEDS: Saccharomyces boulardii 250 MG CAP PO SCH (09:57)
[2019-01-16] MEDS: Amoxicillin/Potassium Clav 875 MG TAB PO SCH ×2 (09:58→19:52)
--- NOTE | 2019-01-16 10:03 | PRG ---
DATE OF SERVICE: 01/16/2019 SERVICE: Pulmonary Medicine. INTERVAL HISTORY: The patient is doing really well from respiratory standpoint. Breathing comfortably. He went for decortication yesterday. He is returning to his usual state of health. He indicates that his chest discomfort is much improved. He still has a hard time taking a deep breath or coughing vigorously. PHYSICAL EXAMINATION: VITAL SIGNS: Afebrile, pulse 68, blood pressure 104/60, respirations 18, saturation 95% on room air. GENERAL: The patient is awake and alert, in no apparent distress. LUNGS: Decent air entry. No prolonged expiratory phase or wheezing is appreciated. HEART: Normal rate, regular. ABDOMEN: Soft, nontender, and nondistended. Bowel sounds are positive. MUSCULOSKELETAL: No cyanosis or clubbing. There is no pitting in the bilateral lower extremities. NEUROLOGIC: Grossly nonfocal. LABORATORY DATA: All cultures remain negative to date. IMAGING DATA: Chest x-ray demonstrates chest tube on the right. There appears to be good expansion. I do not see significant pleural disease anymore. ASSESSMENT: 1. Community-acquired pneumonia. 2. Complicated parapneumonic effusion versus empyema, status post decortication, postoperative day #1. 3. Sepsis, resolved. DISCUSSION AND PLAN: Now that the patient's fever profile has improved, we will discontinue his Zosyn and put him on p.o. Augmentin. He will remain in the hospital until these chest tubes can be removed. He will need a 14-day course of antibiotics assuming that we do not have any significant setbacks. Job ID: [id number]
--- NOTE | 2019-01-16 10:11 | PDOC.PN ---
- Subjective Encounter Start Date: 01/16/19 Encounter Start Time: 09:00 Patient seen and examined. No new complaints. No overnight events - Objective Resuscitation Status - Order Detail: 01/14/19 07:06 Resuscitation Status Routine Resuscitation Status: FULL: Full Resuscitation MAR Reviewed: Yes Vital Signs & Weight: Vital Signs (12 hours) Temp Pulse Resp BP Pulse Ox 01/16/19 07:51 98.4 F 68 18 104/60 95 01/16/19 07:20 95 01/16/19 04:00 99.1 F 72 16 106/59 L 94 L 01/16/19 00:00 99.3 F 79 16 105/63 94 L Weight Admit Weight 129 lb 11.2 oz Weight 129 lb 11.2 oz I&O: 01/15/19 01/16/19 01/17/19 06:59 06:59 06:59 Intake Total 1170 Balance 1170 Result Diagrams: 01/14/19 04:28 01/14/19 04:28 Radiology Reviewed by me: Yes (chest xray reviewed) Phys Exam - Physical Examination Constitutional: NAD HEENT: PERRLA, moist MMs, sclera anicteric Neck: no JVD, supple Respiratory: no wheezing, no rales, no rhonchi chest tube on right side, air entry reduced Cardiovascular: RRR, no significant murmur, no rub Gastrointestinal: soft, non-tender, no distention, positive bowel sounds Musculoskeletal: no edema, pulses present Neurological: non-focal, normal sensation, moves all 4 limbs Lymphatic: no nodes Psychiatric: normal affect, A&O x 3 Skin: no rash, normal turgor Dx/Plan (1) Pneumonia Code(s): J18.9 - PNEUMONIA, UNSPECIFIED ORGANISM Status: Acute (2) Parapneumonic effusion Code(s): J18.9 - PNEUMONIA, UNSPECIFIED ORGANISM; J91.8 - PLEURAL EFFUSION IN OTHER CONDITIONS CLASSIFIED ELSEWHERE Status: Acute Comment: right sided, loculated pleural effusion, empyema suspected, associated with underlying pneumonia, s/p thoracentesis and s/p thoracoscopic decortication and now with chest tube in place (3) Sepsis Code(s): A41.9 - SEPSIS, UNSPECIFIED ORGANISM Status: Acute - Plan cont current plan of care, continue antibiotics * today antibiotics changed to PO augmentin * chest tube as per CV surgery * medication reviewed as below * symptomatic treatment. Review of Systems - Review of Systems ENT: negative: Ear Pain, Ear Discharge, Nose Pain, Nose Discharge, Nose Congestion, Mouth Pain, Mouth Swelling, Throat Pain, Throat Swelling, Other Respiratory: negative: Cough, Dry, Shortness of Breath, Hemoptysis, SOB with Excertion, Pleuritic Pain, Sputum, Wheezing Cardiovascular: negative: chest pain, palpitations, orthopnea, paroxysmal nocturnal dyspnea, edema, light headedness, other Gastrointestinal: negative: Nausea, Vomiting, Abdominal Pain, Diarrhea, Constipation, Melena, Hematochezia, Other Genitourinary: negative: Dysuria, Frequency, Incontinence, Hematuria, Retention , Other Musculoskeletal: negative: Neck Pain, Shoulder Pain, Arm Pain, Back Pain, Hand Pain, Leg Pain, Foot Pain, Other Skin: negative: Rash, Lesions, Georges, Bruising, Other - Medications/Allergies Allergies/Adverse Reactions: Allergies Allergy/AdvReac Type Severity Reaction Status Date / Time No Known Allergies Allergy Verified 01/13/19 04:50 Medications: Current Medications Acetaminophen (Tylenol) 650 mg PO Q6H PRN PRN Reason: Headache/Fever/MILD Pain1-3 Last Admin: 01/14/19 17:07 Dose: 650 mg Hydrocodone Bitart/Acetaminophen ([place] 5/325) 1 tab PO Q4H PRN PRN Reason: Moderate Pain (4-6) Last Admin: 01/14/19 09:09 Dose: 1 tab Amoxicillin/Clavulanate Potassium (Augmentin) 875 mg PO Q12HR MAIN Stop: 01/30/19 09:01 Last Admin: 01/16/19 09:58 Dose: 875 mg Artificial Tears (Tears Naturale) 2 drop EA EYE PRN PRN PRN Reason: Dry Eyes Bisacodyl (Dulcolax) 10 mg PO DAILYPRN PRN PRN Reason: Constipation Guaifenesin (Robitussin Sf) 200 mg PO Q4H PRN PRN Reason: Cough Hydralazine HCl (Apresoline) 10 mg SLOW IVP Q4H PRN PRN Reason: SBP > 180 and HR < 70 Ketorolac Tromethamine (Toradol) 15 mg IVP Q8HR PRN PRN Reason: Mild Pain (1-3) Stop: 01/18/19 22:01 Last Admin: 01/15/19 00:22 Dose: 15 mg Loperamide HCl (Imodium) 2 mg PO PRN PRN PRN Reason: Diarrhea/Loose Stools Loratadine (Claritin) 10 mg PO DAILYPRN PRN PRN Reason: Sinus Symptoms Mineral Oil/White Petrolatum (Eucerin Cream) 0 gm TOP BIDPRN PRN PRN Reason: Dry Skin Morphine Sulfate (Morphine) 2 mg SLOW IVP Q4H PRN PRN Reason: Severe Pain (7-10) Last Admin: 01/16/19 06:58 Dose: 2 mg Ondansetron HCl (Zofran) 4 mg IVP Q6H PRN PRN Reason: Nausea/Vomiting Ondansetron HCl (Zofran Odt) 4 mg SL Q6H PRN PRN Reason: Nausea/Vomiting Saccharomyces Boulardii (Florastor) 250 mg PO DAILY MAIN Last Admin: 01/16/19 09:57 Dose: 250 mg Senna/Docusate Sodium (Senokot S) 2 tab PO BID PRN PRN Reason: Constipation Sodium Chloride (Flush - Normal Saline) 10 ml IVF PRN PRN PRN Reason: Saline Flush Last Admin: 01/14/19 09:07 Dose: 10 ml Sodium Chloride ([place] Nasal [place] 0.65%) 0 ml EA NARE QIDPRN PRN PRN Reason: Nasal Congestion Throat Lozenges (Cepastat Lozenges) 1 glen PO Q2H PRN PRN Reason: Sore Throat Zolpidem Tartrate (Ambien) 5 mg PO HSPRN PRN PRN Reason: Insomnia
--- NOTE | 2019-01-16 10:47 | OP ---
DATE OF PROCEDURE: 01/15/2019 PREOPERATIVE DIAGNOSIS: Empyema, right chest. PROCEDURE PERFORMED: Right thoracoscopy with decortication. ANESTHESIA: General. ESTIMATED BLOOD LOSS: Less than 100 mL. FINDINGS: The patient had about 200 mL of thin fluid in the chest as well some fibrinous gelatinous debris and one area of purulence. DESCRIPTION OF PROCEDURE: After adequate anesthesia had been obtained, the patient was placed in the left lateral decubitus position. The right lung was decompressed and a chest entry site was chosen. Initial entry was not possible because the lung was adherent here. Second site was then chosen more laterally and once again the lung was adherent here, but with some blunt dissection, the lung was mobilized and ultimately a free area was found. Using the two sites, the dissection was taken to mobilize the entire lung off the diaphragm from the recesses and the major fissure. After irrigation with about 4 L of fluid and removal of the gelatinous debris, a 32 right angle chest tube was placed. The wounds were then inspected for hemostasis, Marcaine with epinephrine infiltrated into the trocar sites and they were then closed in layers. The patient tolerated the procedure well. Job ID: [id number]
[2019-01-17] MEDS: HYDROcodone/Acetaminophen 5/325 mg Tablet PO PRN ×2 (01:03→08:36)
[2019-01-17] MEDS: Ketorolac Tromethamine 30 MG/ML VIAL IVP PRN (01:05)
--- NOTE | 2019-01-17 07:56 | RAD ---
RADIOGRAPH CHEST 1 VIEW: DATE: 01/17/2019 TIME: 6:45 AM HISTORY: 28-year-old male follow-up chest tube COMPARISON: 01/16/2019 FINDINGS: Right basilar chest tube remains. Infiltrate-like density at lower half of right lung minimally impro armen. Left lung remains clear. No pneumothorax. IMPRESSION: 1. Right lower lung zone pulmonary opacity slightly improved. 2. No pneumothorax.
[2019-01-17] MEDS: Amoxicillin/Potassium Clav 875 MG TAB PO SCH (08:36)
[2019-01-17] MEDS: Saccharomyces boulardii 250 MG CAP PO SCH (08:36)
[2019-01-17 11:48] VITALS: BP 105/65; TEMP 98.1
--- NOTE | 2019-01-17 12:21 | DIS ---
DATE OF ADMISSION: 01/13/2019 DATE OF DISCHARGE: 01/17/2019 PRIMARY CARE PHYSICIAN: [facility] Call admission. DISCHARGE DISPOSITION: Home. PRIMARY DISCHARGE DIAGNOSES: 1. Pneumonia. 2. Parapneumonic effusion. 3. Sepsis. 4. Status post thoracentesis. 5. Status post thoracoscopic decortication. SECONDARY DISCHARGE DIAGNOSIS: None. PRIMARY PROCEDURE/OPERATION: Thoracentesis, thoracoscopic decortication. RADIOLOGICAL INVESTIGATION: Chest x-ray, CT angiography, CT abdomen and pelvis, echocardiography, and chest x-rays after procedure. SIGNIFICANT LABORATORY DATA: WBC 15.7, hemoglobin 13.5, platelet 398. D-dimer 1.48. Sodium 137, creatinine 0.81, calcium 9.5. LFT normal. CRP 27.8. Lipase 9. Urinalysis normal. Culture from blood, pleural fluid negative. DISCHARGE MEDICATIONS: 1. Augmentin 875 mg p.o. b.i.d. for 15 days. 2. Florastor 250 mg p.o. daily for 15 days. CONTRAINDICATION: None. CODE STATUS: Full code. 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 Dr. Andres was following while in hospital. 2. Dr. Walters was consulted for decortication. TEST RESULTS PENDING ON DISCHARGE: None. ALLERGIES: NO KNOWN DRUG ALLERGIES. DISCHARGE PLAN: Posthospital, the patient is instructed to follow up with Dr. Andres and Dr. Walters as instructed in 1 to 2 weeks. At that time, the patient will need repeat imaging. HOSPITAL COURSE: A 28-year-old male, who was having respiratory symptoms. He was having cough and shortness of breath for about a week and subsequently he was having pleuritic chest pain and shortness of breath. He was meeting sepsis criteria on admission. He was having recurrent high-grade fever. He had leukocytosis with suspected pneumonia and associated parapneumonic effusion with loculation. Dr. Andres was consulted while in hospital who did a thoracentesis and subsequently Dr. Walters was consulted for a thoracoscopic decortication, which was done and the chest tube managed by cardiovascular surgeon. Chest tube is removed today. Pulmonary group and cardiovascular group cleared him for discharge on oral antibiotic therapy and he will follow up with them as an outpatient basis. I have seen and examined the patient at bedside today. REVIEW OF SYSTEMS: All review of systems reviewed with him and negative. PHYSICAL EXAMINATION: VITAL SIGNS: Currently, temperature 98.1, pulse 53, respiratory rate 20, saturation 95% on room air, blood pressure 105/65. Weight 129 pounds. GENERAL: The patient is currently alert and oriented x3. HEENT: Head; normocephalic, atraumatic. Eyes; pupils round, reactive to light. Extraocular muscle intact. ENT; oropharynx within normal limits. LUNGS: Clear to auscultation without any rhonchi or rales. CARDIAC: S1, S2 regular without any murmur. ABDOMEN: Soft and benign without any tenderness. EXTREMITIES: No edema. NEUROLOGIC: Nonfocal examination. Overall, the patient is medically stable for discharge today. Job ID: [id number]
--- NOTE | 2019-01-17 12:43 | PRG ---
DATE OF SERVICE: 01/17/2019 SERVICE: Pulmonary Medicine. INTERVAL HISTORY: The patient is doing really well from respiratory standpoint. He has a very small amount of chest discomfort. He had the chest tubes removed today. Otherwise, he is in his usual state of health and very happy with his progress that he has made so far. PHYSICAL EXAMINATION: VITAL SIGNS: Afebrile. Pulse 53, blood pressure 105/65, respirations 20, and saturation 94% on room air. GENERAL: The patient is awake and alert. No apparent distress. LUNGS: Decent air entry. There is no prolonged expiratory phase or wheezing appreciated. HEART: Normal rate. Regular. ABDOMEN: Soft, nontender, and nondistended. Bowel sounds are positive. MUSCULOSKELETAL: No cyanosis or clubbing. No pitting in the bilateral lower extremities. NEUROLOGIC: Grossly nonfocal. LABORATORY DATA: Microbiology remains negative to date. IMAGING: Chest x-ray demonstrates chest tube in good position. There are no significant amounts of pleural fluid present. There is a small infiltrate in the recess of the right lung. Otherwise, no acute cardiopulmonary abnormality is present. ASSESSMENT: 1. Community-acquired pneumonia. 2. Complicated parapneumonic pleural effusion versus empyema, status post decortication, postop day 2. 3. Sepsis, resolved. DISCUSSION AND PLAN: The patient is doing absolutely fantastic. He will need 14 days of Augmentin. He will need a repeat chest x-ray in 6 weeks. I have asked the patient to return to the hospital if he has any recrudesce in fever or chest pain. He will likely be discharged from the hospital today or tomorrow morning. Job ID: [id number] [facility]
--- NOTE | 2019-01-17 12:51 | PDOC.PN ---
- Subjective Encounter Start Date: 01/17/19 Encounter Start Time: 08:30 Patient seen and examined. No new complaints. No overnight events chest tube removed today - Objective Resuscitation Status - Order Detail: 01/14/19 07:06 Resuscitation Status Routine Resuscitation Status: FULL: Full Resuscitation MAR Reviewed: Yes Vital Signs & Weight: Vital Signs (12 hours) Temp Pulse Resp BP Pulse Ox 01/17/19 12:00 94 L 01/17/19 11:46 98.1 F 53 L 20 105/65 95 01/17/19 08:00 97 01/17/19 07:18 98.5 F 55 L 20 108/65 97 01/17/19 04:00 98 F 64 18 105/57 L 95 Weight Admit Weight 129 lb 11.2 oz Weight 129 lb 11.2 oz I&O: 01/16/19 01/17/19 01/18/19 06:59 06:59 06:59 Intake Total 1000 Output Total 1675 Balance -675 Result Diagrams: 01/14/19 04:28 01/14/19 04:28 Radiology Reviewed by me: Yes Phys Exam - Physical Examination Constitutional: NAD HEENT: PERRLA, moist MMs, sclera anicteric Neck: no JVD, supple Respiratory: no wheezing, no rales, no rhonchi Cardiovascular: RRR, no significant murmur, no rub Gastrointestinal: soft, non-tender, no distention, positive bowel sounds Musculoskeletal: no edema, pulses present Neurological: non-focal, normal sensation, moves all 4 limbs Lymphatic: no nodes Psychiatric: normal affect, A&O x 3 Skin: no rash, normal turgor Dx/Plan (1) Pneumonia Code(s): J18.9 - PNEUMONIA, UNSPECIFIED ORGANISM Status: Acute (2) Parapneumonic effusion Code(s): J18.9 - PNEUMONIA, UNSPECIFIED ORGANISM; J91.8 - PLEURAL EFFUSION IN OTHER CONDITIONS CLASSIFIED ELSEWHERE Status: Acute Comment: right sided, loculated pleural effusion, empyema suspected, associated with underlying pneumonia, s/p thoracentesis and s/p thoracoscopic decortication and now with chest tube in place (3) Sepsis Code(s): A41.9 - SEPSIS, UNSPECIFIED ORGANISM Status: Acute - Plan cont current plan of care, continue antibiotics * medication reviewed as below * symptomatic treatment * continue augmentin * discharge when pulmonary OK. Review of Systems - Review of Systems ENT: negative: Ear Pain, Ear Discharge, Nose Pain, Nose Discharge, Nose Congestion, Mouth Pain, Mouth Swelling, Throat Pain, Throat Swelling, Other Respiratory: negative: Cough, Dry, Shortness of Breath, Hemoptysis, SOB with Excertion, Pleuritic Pain, Sputum, Wheezing Cardiovascular: negative: chest pain, palpitations, orthopnea, paroxysmal nocturnal dyspnea, edema, light headedness, other Gastrointestinal: negative: Nausea, Vomiting, Abdominal Pain, Diarrhea, Constipation, Melena, Hematochezia, Other Genitourinary: negative: Dysuria, Frequency, Incontinence, Hematuria, Retention , Other Musculoskeletal: negative: Neck Pain, Shoulder Pain, Arm Pain, Back Pain, Hand Pain, Leg Pain, Foot Pain, Other - Medications/Allergies Allergies/Adverse Reactions: Allergies Allergy/AdvReac Type Severity Reaction Status Date / Time No Known Allergies Allergy Verified 01/13/19 04:50 Medications: Current Medications Acetaminophen (Tylenol) 650 mg PO Q6H PRN PRN Reason: Headache/Fever/MILD Pain1-3 Last Admin: 01/14/19 17:07 Dose: 650 mg Hydrocodone Bitart/Acetaminophen (Mobile 5/325) 1 tab PO Q4H PRN PRN Reason: Moderate Pain (4-6) Last Admin: 01/17/19 08:36 Dose: 1 tab Amoxicillin/Clavulanate Potassium (Augmentin) 875 mg PO Q12HR MAIN Stop: 01/30/19 09:01 Last Admin: 01/17/19 08:36 Dose: 875 mg Artificial Tears (Tears Naturale) 2 drop EA EYE PRN PRN PRN Reason: Dry Eyes Bisacodyl (Dulcolax) 10 mg PO DAILYPRN PRN PRN Reason: Constipation Guaifenesin (Robitussin Sf) 200 mg PO Q4H PRN PRN Reason: Cough Hydralazine HCl (Apresoline) 10 mg SLOW IVP Q4H PRN PRN Reason: SBP > 180 and HR < 70 Loperamide HCl (Imodium) 2 mg PO PRN PRN PRN Reason: Diarrhea/Loose Stools Loratadine (Claritin) 10 mg PO DAILYPRN PRN PRN Reason: Sinus Symptoms Mineral Oil/White Petrolatum (Eucerin Cream) 0 gm TOP BIDPRN PRN PRN Reason: Dry Skin Morphine Sulfate (Morphine) 2 mg SLOW IVP Q4H PRN PRN Reason: Severe Pain (7-10) Last Admin: 01/16/19 18:08 Dose: 2 mg Ondansetron HCl (Zofran) 4 mg IVP Q6H PRN PRN Reason: Nausea/Vomiting Ondansetron HCl (Zofran Odt) 4 mg SL Q6H PRN PRN Reason: Nausea/Vomiting Saccharomyces Boulardii (Florastor) 250 mg PO DAILY MAIN Last Admin: 01/17/19 08:36 Dose: 250 mg Senna/Docusate Sodium (Senokot S) 2 tab PO BID PRN PRN Reason: Constipation Sodium Chloride (Flush - Normal Saline) 10 ml IVF PRN PRN PRN Reason: Saline Flush Last Admin: 01/14/19 09:07 Dose: 10 ml Sodium Chloride ([place] Nasal [place] 0.65%) 0 ml EA NARE QIDPRN PRN PRN Reason: Nasal Congestion Throat Lozenges (Cepastat Lozenges) 1 glen PO Q2H PRN PRN Reason: Sore Throat Zolpidem Tartrate (Ambien) 5 mg PO HSPRN PRN PRN Reason: Insomnia
[2019-01-18 19:08] LABS: Fungus Stain Final report (.)
[2019-01-20 15:07] LABS: QuantiFERON-TB Gold Plus POSITIVE (Negative)
== END 2019-01-17 12:55 | disposition home or self-care (01) | DRG 853 ==
LOC: ERS 23:43 → 2SW 01-13 03:34 → OBSVTOIN 01-13 03:34 → T4-A 01-13 11:43
PROVIDERS: ADMIT Internal Medicine; ATTEND Internal Medicine
PROC: 0BNK4ZZ Release Right Lung, Percutaneous Endoscopic Approach (ICD-10-PCS; 2019-01-14)
PROC: 0W993ZZ Drainage of Right Pleural Cavity, Percutaneous Approach (ICD-10-PCS; principal; 2019-01-15)
DX: A41.9 Sepsis, unspecified organism (principal); J18.9 Pneumonia, unspecified organism; J86.9 Pyothorax without fistula; J91.8 Pleural effusion in other conditions classified elsewhere; K59.00 Constipation, unspecified; D50.9 Iron deficiency anemia, unspecified; Y95 Nosocomial condition
CPT/HCPCS: 36415; 71045; 71046; 71275; 74177; 80048; 80053; 81003; 82945; 83605; 83615; 83690; 83986; 84157; 85025; 85060; 85379; 85652; 86140; 86480; 87040; 87070; 87102; 87116; 87205; 87206; 88112; 88305; 89051; 93005; 93306; 96361; 96365; 96366; 96367; 96375; J0456; J0670; J0696; J1100; J1885; J2001; J2250; J2270; J2405; J2543; J2704; J3010; J3370; J3490; J7050; Q9966

== ENCOUNTER 2019-01-30 15:59 | Outpatient (CLI) | payer SELFPAY ==
--- NOTE | 2019-01-30 16:35 | RAD ---
EXAM: Chest PA and lateral: HISTORY: Empyema. COMPARISON: 01/14/2019 FINDINGS: Heart: Normal cardiac silhouette Aorta: Unremarkable Pulmonary vessels: Normal Costophrenic angles: Minimal blunting of the right costophrenic angle. Minimal thickening of the righ t major fissure suggesting small amount of pleural fluid. Lungs: Hazy opacity in the right midlung may represent residual lower lobe infiltrate/atelectasis. Pneumothorax: No pneumothorax Osseous structures: No osseous abnormalities IMPRESSION: Interval decrease in size of pleural effusion with associated parenchymal changes. Residual opacities do remain suggesting a small amount of right-sided pleural fluid and residual parenchymal changes likely in the right lower lobe.
== END 2019-01-30 16:00 | disposition home or self-care (01) ==
LOC: RAD 15:59
PROVIDERS: ATTEND Thoracic Surgery (Cardiothoracic Vascular Surgery)
DX: J86.9 Pyothorax without fistula (principal); J90 Pleural effusion, not elsewhere classified; R91.8 Other nonspecific abnormal finding of lung field
CPT/HCPCS: 71046